=== PATIENT | male | born 1980 | race African-American/Black ===

== ENCOUNTER 2018-12-06 09:27 | Outpatient (CLI) | payer MEDICAID, MEDICARE ==
[2018-12-06 18:00] LABS: BASOPHILS % (AUTO) 0.5 %; EOSINOPHILS # (AUTO) 0.2 10^3/uL (0.0-0.7); EOSINOPHILS % (AUTO) 3.4 %; HGB - HEMOGLOBIN 15.5 g/dL (14.0-18.0); LYMPHOCYTES # (AUTO) 1.7 10^3/uL (1.5-3.5); LYMPHOCYTES % (AUTO) 30.4 %; MEAN CORPUSCULAR HEMOGLOBIN 30.5 pg (27.0-31.0); MEAN CORPUSCULAR HGB CONC 32.4 g/dL (32.0-36.0); MEAN CORPUSCULAR VOLUME 93.9 fL (80.0-94.0); MEAN PLATELET VOLUME 10.8 fL (7.4-11.4); MONOCYTES # (AUTO) 0.6 10^3/uL (0.0-1.0); MONOCYTES % (AUTO) 11.1 %; NEUTROPHILS % (AUTO) 54.2 %; PLT - PLATELET COUNT 189 10^3/uL (130-450); RED BLOOD COUNT 5.09 10^6/uL (4.70-6.10); WHITE BLOOD COUNT 5.6 x10^3/uL (4.8-10.8)
[2018-12-06 18:51] LABS: HB2 TOTAL 15.7 g/dL; HEMOGLOBIN A1C 0.55 g/dL; HEMOGLOBIN A1C % 5.4 % (4.6-6.2)
[2018-12-06 19:02] LABS: ALBUMIN 4.4 g/dL (3.2-5.5); ALBUMIN/GLOBULIN RATIO 1.6 (1.0-2.2); ALKALINE PHOSPHATASE 72 IU/L (42-121); ALT ALANINE AMINOTRANSFERASE 20 IU/L (10-60); AST ASPARTATE AMINOTRANSFERASE 18 IU/L (10-42); BUN - BLOOD UREA NITROGEN 14 mg/dL (6-20); CALCIUM 8.8 mg/dL (8.5-10.3); CARBON DIOXIDE - CO2 31 mmol/L (21-32); CHLORIDE 105 mmol/L (101-111); CHOL/HDL RATIO 2.8 (<5.0); CHOLESTEROL 169 mg/dL; GFR - MDRD 101 (>89); GLUCOSE 81 mg/dL (70-100); HDL CHOLESTEROL 61 mg/dL; LDL CHOLESTEROL,CALCULATED 99 mg/dL; LDL/HDL RATIO 1.6 (<3.6); SODIUM 142 mmol/L (135-145); TOTAL PROTEIN 7.2 g/dL (6.7-8.2); VLDL CHOLESTEROL 9 mg/dL
== END 2018-12-06 09:28 | disposition home or self-care (01) ==
LOC: LAB.S 09:27
PROVIDERS: ATTEND Registered Nurse
DX: F32.9 Major depressive disorder, single episode, unspecified (principal)
CPT/HCPCS: 36415; 80053; 80061; 83036; 83721; 84443; 85025

== ENCOUNTER 2020-07-15 11:25 | Outpatient (CLI) | payer MEDICARE, MEDICAID ==
[2020-07-16 07:49] VITALS: BP 144/89
--- NOTE | 2020-07-16 07:49 | SLEEP CARE CONSULTATION ---
Information from patient questionnaire entered by Marcia Mckeon. I have reviewed and concur with the information entered by Marcia Mckeon. This document represents the service I personally performed and the decisions made by me, Jenna Lantigua MD, [facility]. History of Present Illness Service Date and Time: 07/15/2020 1125 Reason for Visit: New patient Date of Onset: Years Usual bedtime: 11:00 PM Time it takes to fall asleep: 5 min Snores at night: No Observed to quit breathing while asleep: No Number of times waking at night: ? Reasons for waking at night: reports: Bathroom Toss, Turn, or Twitch while sleeping: No Recalls having dreams: Yes Usually gets out of bed at: 10:00 AM Feels refreshed in the morning: Yes Morning headache: Yes (TV) Sleepy or fatigued during the day: Yes Ever fallen asleep while driving: No Takes day naps: Yes Prior sleep studies: No Additional HPI information: I had the pleasure of seeing Mr. Alonso today regarding the possibility of him having a sleep disorder. As you know, he is a 40 year old gentleman who complains of insomnia and excessive daytime sleepiness. The patient himself is not bothered too much but his father reports he staying awake more at night and sleeping more during the day. The patient is blind from . He reports going to bed at 11 pm because thats when his fathers partner turns off the TV. He gets out of bed no later than 9 am. The patient is not bothered by the naps he takes during the day. His daily activity is very limited. He does not leave the house much. His father adds that he would have to go with his son if he leaves the house. He tried melatonin in the past and it worked somewhat. Presently, he only takes Abilify and Wellbutrin. He does not snore much at night. 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 Patient is Single and lives in [place]. Have you smoked in the past 12 months: No Alcohol use: No Family History Family history of sleep disordered breathing: No Allergies and Home Medications Drug allergies reviewed: Yes Home medication list reviewed: Yes (bupropion, Abilify) Review of Systems Cardiovascular: denies: high blood pressure, palpitations, chest pain, irregular heart rate or pulse, leg or foot swelling, have to sleep sitting up, other Respiratory: denies: shortness of breath, wheeze, sputum production, chronic cough, other Gastrointestinal: denies: heartburn, difficulty swallowing, nausea, vomitting, diarrhea, abdominal pain, other Urinary: denies: incontinence, frequency, urgency, impotence, other Neurological: denies: headaches, seizure, head trauma, disorientation, speech dysfunction, gait or balance problems, fainting or unconsciousness, other Psychiatric: reports: anxiety, depression Ear/Nose/Throat: denies: nasal congestion, sinus problems, nose bleeds, dry mouth/throat, hoarseness, injury to nose, tonsillectomy, wisdom teeth removed, other Endocrine: denies: thyroid disease, history of goiter, sluggishness, too hot or cold, excessive thirst, increased appetite, increased urination, unexplained weakness, other Musculoskeletal: denies: joint pain, neck pain, back pain, joint swelling, muscle pain or cramping, mobility problems, other Immunologic: denies: sneezing, rash, itching, allergies to food or environment, other Physical Exam Blood Pressure: 144/89 Heart Rate: 64 O2 Saturation: 98 Height: 5 ft 9 in Weight: 177 lb Body Mass Index: 26.1 BMI Classification: Overweight Neck circumference: 16 Impression and Plan IMPRESSION: 1. 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 It is not clear that his circadian rhythm shifts around from day to day. Naps during the day will be difficult to overcome due to his lack of daytime activity and the fact that they do not bother him. I recommend he create more activities during the day, including going outside. I will have him try tasimelteon (Hetlioz) 20 mg 1 hour before the desired bedtime. The dual- melatonin receptor agonist is the only one approved for the condition. An in- laboratory polysomnography will be ordered to rule out sleep disrupting conditions. Plan: 1. Schedule an in-laboratory polysomnography. 2. Prescription made for tasimelteon 20 mg, #30 with 1 refill. 3. Avoid daytime naps. 4. Return for a follow up after the sleep study. Visit Type: In Office Other Participants: Other (father) Time Spent with Patient (minutes): 15 Provider Statement: I spent 100% of the Face to Face Visit with the patient with greater than 50% spent counseling the patient and coordination of care.
== END 2020-07-15 11:26 | disposition home or self-care (01) ==
LOC: SC 11:25
PROVIDERS: ATTEND Internal Medicine Pulmonary Disease
DX: G47.20 Circadian rhythm sleep disorder, unspecified type (principal); H54.7 Unspecified visual loss
CPT/HCPCS: 99202; G0463; 99212

== ENCOUNTER 2022-10-27 10:55 | Outpatient (CLI) | payer MEDICARE, MEDICAID ==
[2022-10-27 15:17] LABS: BASOPHILS % (AUTO) 0.5 %; EOSINOPHILS # (AUTO) 0.2 10^3/uL (0.0-0.7); EOSINOPHILS % (AUTO) 2.9 %; HCT - HEMATOCRIT 50.3 % (42.0-52.0); HGB - HEMOGLOBIN 16.5 g/dL (14.0-18.0); LYMPHOCYTES # (AUTO) 1.5 10^3/uL (1.5-3.5); LYMPHOCYTES % (AUTO) 26.2 %; MEAN CORPUSCULAR HEMOGLOBIN 30.3 pg (27.0-31.0); MEAN CORPUSCULAR HGB CONC 32.8 g/dL (32.0-36.0); MEAN CORPUSCULAR VOLUME 92.3 fL (80.0-94.0); MEAN PLATELET VOLUME 10.6 fL (7.4-11.4); MONOCYTES # (AUTO) 0.8 10^3/uL (0.0-1.0); MONOCYTES % (AUTO) 13.1 %; NEUTROPHILS # (AUTO) 3.3 10^3/uL (1.5-6.6); NEUTROPHILS % (AUTO) 57.1 %; PLT - PLATELET COUNT 192 10^3/uL (130-450); RED BLOOD COUNT 5.45 10^6/uL (4.70-6.10); RED CELL DISTRIBUTION WIDTH 14.7 % (12.0-15.0); WHITE BLOOD COUNT 5.8 x10^3/uL (4.8-10.8)
[2022-10-27 16:01] LABS: ALBUMIN 4.4 g/dL (3.2-5.5); ALBUMIN/GLOBULIN RATIO 1.4 (1.0-2.2); ALKALINE PHOSPHATASE 81 IU/L (42-121); ALT ALANINE AMINOTRANSFERASE 26 IU/L (10-60); AST ASPARTATE AMINOTRANSFERASE 22 IU/L (10-42); BILIRUBIN,TOTAL 0.7 mg/dL (0.2-1.0); BUN - BLOOD UREA NITROGEN 15 mg/dL (6-20); CALCIUM 9.2 mg/dL (8.5-10.3); CARBON DIOXIDE - CO2 29 mmol/L (21-32); CHLORIDE 106 mmol/L (101-111); CHOL/HDL RATIO 3.2 (<5.0); CHOLESTEROL 151 mg/dL; CREATININE 1.1 mg/dL (0.6-1.3); GFR - MDRD 89 (>89); GLUCOSE 87 mg/dL (74-104); HDL CHOLESTEROL 47 mg/dL; LDL CHOLESTEROL,CALCULATED 86 mg/dL; LDL/HDL RATIO 1.8 (<3.6); POTASSIUM 3.7 mmol/L (3.5-4.5); SODIUM 139 mmol/L (135-145); TOTAL PROTEIN 7.5 g/dL (6.4-8.9); TRIGLYCERIDES 92 mg/dL (48-352); VLDL CHOLESTEROL 18 mg/dL
[2022-10-27 20:47] LABS: ESTIMATED AVERAGE GLUCOSE 117 mg/dL (70-100); HEMOGLOBIN A1c% 5.7 % (4.27-6.07)
== END 2022-10-27 10:56 | disposition home or self-care (01) ==
LOC: LAB.S 10:55
PROVIDERS: ATTEND Registered Nurse
DX: Z13.1 Encounter for screening for diabetes mellitus (principal); Z13.228 Encounter for screening for other metabolic disorders; Z13.220 Encounter for screening for lipoid disorders; Z13.29 Encounter for screening for other suspected endocrine disorder; Z13.0 Encounter for screening for diseases of the blood and blood-forming organs and certain disorders involving the immune mechanism; Z79.899 Other long term (current) drug therapy
CPT/HCPCS: 36415; 80053; 80061; 83036; 83721; 84443; 85025

== ENCOUNTER 2023-04-27 13:08 | Emergency (ER) | payer MEDICAID, MEDICARE ==
--- NOTE | 2023-04-27 13:52 | ED Physician Documentation ---
PD HPI MHE - Stated complaint Stated Complaint: MHE - Chief complaint Chief Complaint: MHE - History obtained from History obtained from: Patient, Family - History of Present Illness Pain level max: 0 Pain level now: 0 Contributing factors: Family (Recently his father's ). No: Substance abuse - ETOH, Substance abuse - drugs Similar symptoms before: Diagnosis (schizophrenia) - Additional information Additional information: 42-year-old male history of schizophrenia and blindness presents to the emergency department with his father. Reportedly the patient has been putting coke hands and doughnuts into the toilet at home. He is not sleeping but does suffer from non 24. No suicidal or homicidal statements. Reportedly the DCR saw the patient at home and sent him here for "medical clearance". There is reportedly a voluntary bed available for the patient. Father states that the patient needs a "comprehensive evaluation" of his medications as they were prescribed many years ago in [place]. He does not currently have a counselor, therapist or psychiatrist. Meds are prescribed by his PCP. Father states that he is unsure if the patient was taking his medications as prescribed or not. Patient states he is taking his medications as prescribed Review of Systems Constitutional: denies: Fever GI: denies: Vomiting Skin: denies: Rash Musculoskeletal: denies: Neck pain, Back pain Neurologic: denies: Headache PD PAST MEDICAL HISTORY - Past Medical History Past Medical History: Yes Respiratory: Other Neuro: None HEENT: Glaucoma Psych: Depression, Anxiety, Schizophrenia Derm: Other - Past Surgical History Past Surgical History: Yes General: Other HEENT: Other - Present Medications Home Medications: Ambulatory Orders Medication Instructions Recorded Confirmed ARIPiprazole [Abilify] 5 mg PO DAILY #30 tablet 01/29/15 04/27/23 buPROPion HCL [Bupropion HCl] 100 mg PO BID #60 tablet 01/29/15 04/27/23 - Allergies Allergies/Adverse Reactions: Allergies Allergy/AdvReac Type Severity Reaction Status Date / Time sertraline HCl * AdvReac Cramps Verified 04/27/23 13:18 [From Zoloft] - Social History Does the pt smoke?: No Smoking Status: Never smoker Does the pt drink ETOH?: No Does the pt have substance abuse?: No - Immunizations Immunizations are current?: No Immunizations: TDAP >10years/unknown - POLST Patient has POLST: No PD ED PE NORMAL - Vitals Vital signs reviewed: Yes - General General: Alert and oriented X 3, No acute distress - HEENT HEENT: Moist mucous membranes - Neck Neck: Supple, no meningeal sign - Cardiac Cardiac: RRR, Strong equal pulses - Respiratory Respiratory: No respiratory distress, Clear bilaterally - Abdomen Abdomen: Soft, Non tender, Non distended - Derm Derm: Warm and dry - Extremities Extremities: No edema - Neuro Neuro: Alert and oriented X 3 - Psych Psych: Normal mood, Normal affect Results - Vitals Vitals: Vital Signs - 24 hr 04/27/23 13:18 Temperature 36.6 C Heart Rate 103 H Respiratory 18 Rate Blood Pressure 145/105 H O2 Saturation 96 Oxygen O2 Source Room air - Labs Labs: Laboratory Tests 04/27/23 04/27/23 04/27/23 13:46 13:46 15:09 WBC 9.1 RBC 5.53 Hgb 16.3 Hct 50.6 MCV 91.5 MCH 29.5 MCHC 32.2 RDW 13.7 Plt Count 194 MPV 10.4 Neut # (Auto) 5.7 Lymph # (Auto) 2.1 [place] # (Auto) 1.1 H Eos # (Auto) 0.2 Baso # (Auto) 0.1 Absolute Nucleated RBC 0.00 Nucleated RBC % 0.0 Sodium 139 Potassium 3.8 Chloride 103 Carbon Dioxide 29 Anion Gap 7.0 BUN 17 Creatinine 1.1 Estimated GFR (MDRD) 89 Glucose 115 H Calcium 8.9 Total Bilirubin 0.7 AST 57 H ALT 61 H Alkaline Phosphatase 81 Total Protein 7.2 Albumin 4.1 Globulin 3.1 Albumin/Globulin Ratio 1.3 Lipase 44 TSH 0.70 Urine Color Urine Clarity Urine pH Ur Specific [place] Urine Protein Urine Glucose (UA) Urine Ketones Urine Occult Blood Urine Nitrite Urine Bilirubin Urine Urobilinogen Ur Leukocyte Esterase Ur Microscopic Review Urine Culture Comments Urine Opiates Screen Ur Buprenorphine Scrn Ur Oxycodone Screen Urine Methadone Screen Ur Barbiturates Screen Ur Tricyclics Screen Ur Phencyclidine Scrn Ur Amphetamine Screen U Methamphetamines Scrn U Benzodiazepines Scrn Urine Cocaine Screen U Cannabinoids Screen Ur Drug Screen Comment Ethyl Alcohol < 10.0 SARS-CoV-2 (PCR) NOT DETECTED 04/27/23 18:01 WBC RBC Hgb Hct MCV MCH MCHC RDW Plt Count MPV Neut # (Auto) Lymph # (Auto) [place] # (Auto) Eos # (Auto) Baso # (Auto) Absolute Nucleated RBC Nucleated RBC % Sodium Potassium Chloride Carbon Dioxide Anion Gap BUN Creatinine Estimated GFR (MDRD) Glucose Calcium Total Bilirubin AST ALT Alkaline Phosphatase Total Protein Albumin Globulin Albumin/Globulin Ratio Lipase TSH Urine Color YELLOW Urine Clarity CLEAR Urine pH 7.0 Ur Specific [place] 1.015 Urine Protein NEGATIVE Urine Glucose (UA) NEGATIVE Urine Ketones 15 H Urine Occult Blood NEGATIVE Urine Nitrite NEGATIVE Urine Bilirubin NEGATIVE Urine Urobilinogen 2 H Ur Leukocyte Esterase NEGATIVE Ur Microscopic Review NOT INDICATED Urine Culture Comments NOT INDICATED Urine Opiates Screen NEGATIVE Ur Buprenorphine Scrn NEGATIVE Ur Oxycodone Screen NEGATIVE Urine Methadone Screen NEGATIVE Ur Barbiturates Screen NEGATIVE Ur Tricyclics Screen NEGATIVE Ur Phencyclidine Scrn NEGATIVE Ur Amphetamine Screen NEGATIVE U Methamphetamines Scrn NEGATIVE U Benzodiazepines Scrn NEGATIVE Urine Cocaine Screen NEGATIVE U Cannabinoids Screen NEGATIVE Ur Drug Screen Comment CUTOFF CONC BELOW: Ethyl Alcohol SARS-CoV-2 (PCR) PD Medical Decision Making - ED course Complexity details: reviewed results, re-evaluated patient, considered differential, d/w patient, d/w family ED course: 42-year-old male, blind from history of schizophrenia. Acting different per father. Social work was consulted, placement is sought. Patient is medically clear for psychiatric care. No beds available tonight, patient will be signed out to the [facility] emergency department physician for care overnight. Patient will likely need to be reevaluated in the morning for potential placement. This document was made in part using voice recognition software. While efforts are made to proofread this document, sound alike and grammatical errors may occur. Departure - Departure Clinical Impression: Schizophrenia Qualifiers: Schizophrenia type: unspecified Qualified Code(s): F20.9 - Schizophrenia, unspecified Condition: Stable Forms: PCP List
[2023-04-27 13:53] LABS: BASOPHILS # (AUTO) 0.1 10^3/uL (0.0-0.1); BASOPHILS % (AUTO) 0.6 %; EOSINOPHILS # (AUTO) 0.2 10^3/uL (0.0-0.7); EOSINOPHILS % (AUTO) 1.8 %; HCT - HEMATOCRIT 50.6 % (42.0-52.0); HGB - HEMOGLOBIN 16.3 g/dL (14.0-18.0); LYMPHOCYTES # (AUTO) 2.1 10^3/uL (1.5-3.5); LYMPHOCYTES % (AUTO) 22.9 %; MEAN CORPUSCULAR HEMOGLOBIN 29.5 pg (27.0-31.0); MEAN CORPUSCULAR HGB CONC 32.2 g/dL (32.0-36.0); MEAN CORPUSCULAR VOLUME 91.5 fL (80.0-94.0); MEAN PLATELET VOLUME 10.4 fL (7.4-11.4); MONOCYTES # (AUTO) 1.1 10^3/uL (0.0-1.0); MONOCYTES % (AUTO) 11.9 %; NEUTROPHILS # (AUTO) 5.7 10^3/uL (1.5-6.6); NEUTROPHILS % (AUTO) 62.5 %; PLT - PLATELET COUNT 194 10^3/uL (130-450); RED BLOOD COUNT 5.53 10^6/uL (4.70-6.10); RED CELL DISTRIBUTION WIDTH 13.7 % (12.0-15.0); WHITE BLOOD COUNT 9.1 x10^3/uL (4.8-10.8)
[2023-04-27 14:26] LABS: ALBUMIN 4.1 g/dL (3.2-5.5); ALBUMIN/GLOBULIN RATIO 1.3 (1.0-2.2); ALKALINE PHOSPHATASE 81 IU/L (42-121); ALT ALANINE AMINOTRANSFERASE 61 IU/L (10-60); AST ASPARTATE AMINOTRANSFERASE 57 IU/L (10-42); BILIRUBIN,TOTAL 0.7 mg/dL (0.2-1.0); BUN - BLOOD UREA NITROGEN 17 mg/dL (6-20); CALCIUM 8.9 mg/dL (8.5-10.3); CARBON DIOXIDE - CO2 29 mmol/L (21-32); CHLORIDE 103 mmol/L (101-111); CREATININE 1.1 mg/dL (0.6-1.3); ETOH - ETHANOL < 10.0 mg/dL; GFR - MDRD 89 (>89); GLUCOSE 115 mg/dL (74-104); LIPASE 44 U/L (11-82); POTASSIUM 3.8 mmol/L (3.5-4.5); SODIUM 139 mmol/L (135-145); TOTAL PROTEIN 7.2 g/dL (6.4-8.9)
[2023-04-27 18:08] LABS: BILIRUBIN,URINE NEGATIVE (NEGATIVE); GLUCOSE, URINE (UA) NEGATIVE (NEGATIVE); KETONES,URINE (UA) 15 mg/dL (NEGATIVE); LEUKOCYTE ESTERASE, URINE NEGATIVE (NEGATIVE); NITRITE,URINE NEGATIVE (NEGATIVE); OCCULT BLOOD,URINE NEGATIVE (NEGATIVE); PROTEIN,URINE NEGATIVE (NEGATIVE); UROBILINOGEN,URINE 2 E.U./dL (NORMAL)
[2023-04-27 18:10] LABS: CLARITY,URINE CLEAR (CLEAR)
[2023-04-27 18:24] LABS: AMPHETAMINE SCREEN,URINE NEGATIVE (NEGATIVE); BARBITURATE SCREEN,UR NEGATIVE (NEGATIVE); BENZODIAZEPINES SCREEN, URINE NEGATIVE (NEGATIVE); BUPRENORPHINE SCREEN, URINE NEGATIVE (NEGATIVE); COCAINE SCREEN URINE NEGATIVE (NEGATIVE); METHADONE SCREEN, URINE NEGATIVE (NEGATIVE); METHAMPHETAMINES SCREEN, URINE NEGATIVE (NEGATIVE); OPIATE SCREEN, URINE NEGATIVE (NEGATIVE); OXYCODONE SCREEN, URINE NEGATIVE (NEGATIVE); THC CANNABINOID SCREEN, URINE NEGATIVE (NEGATIVE); TRICYCLIC ANTIDEPRESSANT,URINE NEGATIVE (NEGATIVE)
[2023-04-27] MEDS: buPROPion SR 100 MG TABLET PO SCH (22:13)
--- NOTE | 2023-04-28 01:45 | ED Physician Documentation ---
ED Addendum - Addendum Addendum: 04/28/23 01:44 - [facility] has spoken to the patient and called us back stating that they will not take this patient unless he is DCR did as they do not feel that he is able to consent for treatment.The RN did reach back out to [facility] to make sure that they saw that the patient was seen by the DCR earlier today but as he was voluntary they did not feel that they needed to be involved. They are aware of this but again feel that he needs to be DCR'd for treatment. 04/28/23 02:29 D/W DCR Esper[place] - She will speak to [facility]. 04/28/23 03:22 Per DCR Esperanza, pt is not detainable at this time. She was not able to get through to [facility]. Recommends waiting to hear from [facility], [facility], and also see if [facility] will reconsider during AM and redo their intake. Patient signed out to oncoming provider at shift change.
[2023-04-28 06:33] VITALS: O2SAT 98
[2023-04-28] MEDS ORDERED: ARIPiprazole 5 MG TABLET PO SCH (09:00)
[2023-04-28] MEDS: buPROPion SR 100 MG TABLET PO SCH (09:32)
[2023-04-28 10:14] VITALS: BP 157/87
== END 2023-04-28 11:03 | disposition home or self-care (01) ==
LOC: ED 13:08
DX: F20.9 Schizophrenia, unspecified (principal); Z79.899 Other long term (current) drug therapy
CPT/HCPCS: 36415; 80053; 80306; 81003; 83690; 84443; 85025; 87635; 99283; A9270; G0480; 80320; 81001; 87086

== ENCOUNTER 2023-05-06 15:57 | Emergency (ER) | payer MEDICARE ==
[2023-05-06 16:15] LABS: BASOPHILS % (AUTO) 0.4 %; EOSINOPHILS # (AUTO) 0.1 10^3/uL (0.0-0.7); EOSINOPHILS % (AUTO) 0.6 %; HCT - HEMATOCRIT 50.1 % (42.0-52.0); HGB - HEMOGLOBIN 16.5 g/dL (14.0-18.0); LYMPHOCYTES # (AUTO) 1.8 10^3/uL (1.5-3.5); MEAN CORPUSCULAR HEMOGLOBIN 30.1 pg (27.0-31.0); MEAN CORPUSCULAR HGB CONC 32.9 g/dL (32.0-36.0); MEAN CORPUSCULAR VOLUME 91.3 fL (80.0-94.0); MEAN PLATELET VOLUME 9.9 fL (7.4-11.4); MONOCYTES # (AUTO) 0.9 10^3/uL (0.0-1.0); MONOCYTES % (AUTO) 11.2 %; NEUTROPHILS # (AUTO) 5.4 10^3/uL (1.5-6.6); NEUTROPHILS % (AUTO) 65.3 %; PLT - PLATELET COUNT 263 10^3/uL (130-450); RED BLOOD COUNT 5.49 10^6/uL (4.70-6.10); RED CELL DISTRIBUTION WIDTH 13.9 % (12.0-15.0); WHITE BLOOD COUNT 8.3 x10^3/uL (4.8-10.8)
--- NOTE | 2023-05-06 16:29 | ED Physician Documentation ---
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 He was here about a week ago and psychiatric hospitalization was recommended, but he was not detainable. He was in [place] 2 days ago and they wanted to hospitalize him but it sounds like there was no bed. Social work let me know before the patient's arrival that there was a bed for him at [facility] and was going to present to the emergency department for medical clearance. Patient here with father. Father states that he threw out all of his meds 2 nights ago. States that he has been belligerent at home and pushing his father. PD PAST MEDICAL HISTORY - Past Medical History Respiratory: Other Neuro: None HEENT: Glaucoma Psych: Depression, Anxiety, Schizophrenia Derm: Other - Past Surgical History Past Surgical History: Yes General: Other HEENT: Other - Present Medications Home Medications: Ambulatory Orders Medication Instructions Recorded Confirmed ARIPiprazole [Abilify] 5 mg PO DAILY #30 tablet 01/29/15 05/06/23 buPROPion HCL [Bupropion HCl Sr] 100 mg PO BID 04/28/23 05/06/23 - Allergies Allergies/Adverse Reactions: Allergies Allergy/AdvReac Type Severity Reaction Status Date / Time sertraline HCl * AdvReac Cramps Verified 05/06/23 16:17 [From Zoloft] - Social History Does the pt smoke?: No Smoking Status: Never smoker Does the pt drink ETOH?: No Does the pt have substance abuse?: No - Immunizations Immunizations are current?: No Immunizations: TDAP >10years/unknown - POLST Patient has POLST: No PD ED PE NORMAL - Vitals Vital signs reviewed: Yes - General General: No acute distress, Other (Calm and cooperative initially here. Somewhat flattened affect. Opacified corneas and blind.) - Cardiac Cardiac: RRR, No murmur - Respiratory Respiratory: No respiratory distress, Clear bilaterally - Abdomen Abdomen: Non tender - Neuro Eye Opening: Spontaneous Motor: Obeys Commands Verbal: Oriented GCS Score: 15 Results - Vitals Vitals: Vital Signs - 24 hr 05/06/23 16:07 Temperature 36.1 C L Heart Rate 82 Respiratory 18 Rate Blood Pressure 139/72 H O2 Saturation 99 Oxygen O2 Source Room air - EKG (time done) 1631 EKG releavant findings:: EKG personally interpreted by author of this note. Relevant findings are: Rate: Rate (enter#) (81) Rhythm: NSR Ora: Normal Intervals: Normal [place] QRS: Normal Ischemia: Normal ST segments - Labs Labs: Laboratory Tests 05/06/23 05/06/23 05/06/23 16:09 16:09 16:10 WBC 8.3 RBC 5.49 Hgb 16.5 Hct 50.1 MCV 91.3 MCH 30.1 MCHC 32.9 RDW 13.9 Plt Count 263 MPV 9.9 Neut # (Auto) 5.4 Lymph # (Auto) 1.8 Saline # (Auto) 0.9 Eos # (Auto) 0.1 Baso # (Auto) 0.0 Absolute Nucleated RBC 0.00 Nucleated RBC % 0.0 Sodium 138 Potassium 3.5 Chloride 102 Carbon Dioxide 29 Anion Gap 7.0 BUN 15 Creatinine 1.2 Estimated GFR (MDRD) 80 L Glucose 92 Calcium 9.3 Magnesium 1.8 Total Bilirubin 0.6 AST 26 ALT 41 Alkaline Phosphatase 79 Total Creatine Kinase 532 H Total Protein 7.3 Albumin 4.3 Globulin 3.0 Albumin/Globulin Ratio 1.4 Lipase 33 Vitamin B12 275 Folate 15.3 TSH 0.22 L Urine Color YELLOW Urine Clarity CLEAR Urine pH 6.0 Ur Specific [place] 1.025 Urine Protein NEGATIVE Urine Glucose (UA) NEGATIVE Urine Ketones 40 H Urine Occult Blood NEGATIVE Urine Nitrite NEGATIVE Urine Bilirubin NEGATIVE Urine Urobilinogen 1 (NORMAL) Ur Leukocyte Esterase NEGATIVE Ur Microscopic Review NOT INDICATED Urine Culture Comments NOT INDICATED Salicylates < 1.5 Urine Opiates Screen NEGATIVE Ur Buprenorphine Scrn NEGATIVE Ur Oxycodone Screen NEGATIVE Urine Methadone Screen NEGATIVE Acetaminophen 0.1 Ur Barbiturates Screen NEGATIVE Ur Tricyclics Screen NEGATIVE Ur Phencyclidine Scrn NEGATIVE Ur Amphetamine Screen NEGATIVE U Methamphetamines Scrn NEGATIVE U Benzodiazepines Scrn NEGATIVE Urine Cocaine Screen NEGATIVE U Cannabinoids Screen NEGATIVE Ur Drug Screen Comment CUTOFF CONC BELOW: Ethyl Alcohol < 10.0 SARS-CoV-2 (PCR) 05/06/23 16:42 WBC RBC Hgb Hct MCV MCH MCHC RDW Plt Count MPV Neut # (Auto) Lymph # (Auto) Saline # (Auto) Eos # (Auto) Baso # (Auto) Absolute Nucleated RBC Nucleated RBC % Sodium Potassium Chloride Carbon Dioxide Anion Gap BUN Creatinine Estimated GFR (MDRD) Glucose Calcium Magnesium Total Bilirubin AST ALT Alkaline Phosphatase Total Creatine Kinase Total Protein Albumin Globulin Albumin/Globulin Ratio Lipase Vitamin B12 Folate TSH Urine Color Urine Clarity Urine pH Ur Specific [place] Urine Protein Urine Glucose (UA) Urine Ketones Urine Occult Blood Urine Nitrite Urine Bilirubin Urine Urobilinogen Ur Leukocyte Esterase Ur Microscopic Review Urine Culture Comments Salicylates Urine Opiates Screen Ur Buprenorphine Scrn Ur Oxycodone Screen Urine Methadone Screen Acetaminophen Ur Barbiturates Screen Ur Tricyclics Screen Ur Phencyclidine Scrn Ur Amphetamine Screen U Methamphetamines Scrn U Benzodiazepines Scrn Urine Cocaine Screen U Cannabinoids Screen Ur Drug Screen Comment Ethyl Alcohol SARS-CoV-2 (PCR) NOT DETECTED PD Medical Decision Making - ED course ED course: 42-year-old gentleman with decompensated schizophrenia presents with his father looking for inpatient admission. Telepsychiatric consultation does recommend inpatient admission and they are looking for psychiatric placement. Care to overnight physician at shift change pending hopeful expedient placement. Departure - Departure Clinical Impression: Schizophrenia Qualifiers: Schizophrenia type: unspecified Qualified Code(s): F20.9 - Schizophrenia, unspecified Condition: Stable Forms: PCP List
[2023-05-06 16:45] LABS: THYROID STIMULATING HORMONE 0.22 uIU/mL (0.34-5.60)
[2023-05-06 16:46] LABS: ACETAMINOPHEN 0.1 ug/mL; ALBUMIN 4.3 g/dL (3.2-5.5); ALBUMIN/GLOBULIN RATIO 1.4 (1.0-2.2); ALKALINE PHOSPHATASE 79 IU/L (42-121); ALT ALANINE AMINOTRANSFERASE 41 IU/L (10-60); AST ASPARTATE AMINOTRANSFERASE 26 IU/L (10-42); BILIRUBIN,TOTAL 0.6 mg/dL (0.2-1.0); BUN - BLOOD UREA NITROGEN 15 mg/dL (6-20); CALCIUM 9.3 mg/dL (8.5-10.3); CARBON DIOXIDE - CO2 29 mmol/L (21-32); CHLORIDE 102 mmol/L (101-111); CK- CREATINE KINASE 532 IU/L (30-223); CREATININE 1.2 mg/dL (0.6-1.3); ETOH - ETHANOL < 10.0 mg/dL; GFR - MDRD 80 (>89); GLUCOSE 92 mg/dL (74-104); LIPASE 33 U/L (11-82); MAGNESIUM 1.8 mg/dL (1.7-2.3); POTASSIUM 3.5 mmol/L (3.5-4.5); SODIUM 138 mmol/L (135-145); TOTAL PROTEIN 7.3 g/dL (6.4-8.9)
[2023-05-06 16:55] LABS: SALICYLATE < 1.5 mg/dL
--- NOTE | 2023-05-06 17:29 | TELEPSYCH PHYS NOTE ---
[facility] Telepsych Consult Consult Date: 05/06/23 Name of Referring Provider:: ED provider Reason for Consult: decompensation of schizophrenia; aggressive behaviors - Suicide Risk Sreening (ASQ Tool) In the past few weeks, have you wished you were ?: No In the past few weeks, have you felt that you or your family would be better off if you were ?: No In the past week, have you been having thoughts about killing yourself?: No Have you ever tried to kill yourself?: No - Assessment Language: Telugu Software Trainer Required: No Cultural, Anabaptism or Spiritual Preferences: none reported Notes: Father primary historian Chief Complaint: "well my dad thought that I was malfunctioning - I was talking to my mother" History of Present Illness: 42 yo male presenting to ED accompanied by father for psychiatric evaluation and hospitalization secondary to decompensation of schizophrenia and aggressive behaviors. Patient was noted to have been extremely premature. Experiences congenital blindness. Hx of schizophrenia. Was evaluated last week with the recommendation of psychiatric hospitalization per report. Patient refused and apparently there was not sufficient evidence to warrant a committal. Has been seen last night in another facility and discharged as well. Patient is an unreliable historian however father indicates that the patient has discarded his medications. Father reports that 3 weeks ago he lost his . Notes that patient and his did spend a lot of time together although he did not describe them as being extremely close. He began noticing decompensation at that time. Has been destructive to property. Flooded toilet numerous times; father believes that patient may have been discarding medication there. Has refused to comply with rules of the home in terms of housekeeping which is not baseline. Father reports that the patient has been engaging in behaviors that appear nonsensical. Notes that the patient believes that his father and the medications are trying to kill him. Patient did become both verbally and physically aggressive with his 77 yo father this AM. Father does not feel that he can safely provide care for his son and is requesting IP hospitalization. In light of sx presentation, IP hospitalization for safety and stabilization is warranted. Suicide Ideation - Homicide Ideation - Self Harm: Denies suicidal ideation. Denies homicidal ideation Psychiatric History - Treatment History: Patient has a reported hx of schizophrenia. Denies hx of suicide attempts. Appears to have a remote hx of psychiatric hospitalizations. Has been refusing medications. Community Resources Accessed: mental health Family Psych History/ History of suicide: unable to assess Nutritional Status: No nutritional concerns - Medication & Allergies Home Medications: Ambulatory Orders Medication Instructions Recorded Confirmed ARIPiprazole [Abilify] 5 mg PO DAILY #30 tablet 01/29/15 05/06/23 buPROPion HCL [Bupropion HCl Sr] 100 mg PO BID 04/28/23 05/06/23 Allergies/Adverse Reactions: Allergies Allergy/AdvReac Type Severity Reaction Status Date / Time sertraline HCl * AdvReac Cramps Verified 05/06/23 16:17 [From Zoloft] - Drug & Alcohol History Does patient have Drug/ETOH history or addictive behavior?: No - Trauma Does the patient have a history of trauma, abuse, neglect or explotation?: No - Personal Information Does the patient have a history or present tendencies for violence?: Present History or present tendencies for violence (Notes): verbally and physically aggressive with his 77 yo father this AM Services History: NA Does patient have any Legal Charges or Investigations?: No Environment & Living Situation - Social, Peer-Group (Note): At home Environment & Living Situation - Social, Peer-Group (Notes): with 77 yo father Marital Status - Family Circumstances: single Stressors - Financial Concerns: patient reports that he has been talking with his mother Education: unknown Occupation: disabled Collateral - Interdisciplinary Input: collateral information from father - Medical History Psychiatric: reports: Depression, Anxiety, Schizophrenia Neurological: reports: None Eyes, Ears, Nose, Throat: reports: Glaucoma Respiratory: reports: Other Skin: reports: Other - Surgical History General: reports: Other HEENT: reports: Other Childhood History: appears that mother was the primary caregiver for years until she from [place] - appears to have been within the past 5 yrs - Mental Status Exam Appearance and Attire: Appears stated age. Dressed in hospital scrubs. Attitude and Behavior: Calm. Cooperative. Speech: Mumbled. Affect and Mood: Mood is euthymic. Affect reactive. Association and Thought Process: Thoughts are circumstantial. Associations loose. Thought Content: Denies SI, HI Perception: Endorses auditory hallucinations of his mother. Father notes that the patient is experiencing paranoid and persecutory delusions that his father and the medication are trying to kill him. Sensorium, memory and orientation: Alert Intellectual - Cognitive functioning: estimates to have poor health literacy Insight and Judgement: Insight is limited. Judgment is impaired Emotional and Behavioral Functioning: impaired per father's report Ability to Self-Care: Able to complete ADLs - Personal Goals Short-term Goals: unable to assess Long-term Goals: unable to assess - Risk/Protective Factors Risk Factors: Trigger events leading to humiliation, shame and/or despair, Inadequate social supports, Social Isolation Protective Factors / Internal: Identifies reasons for living Protective Factors / External: Supportive social network of family or friends - Plan Impression/Risk Assessment: 42 yo male presenting with decompensation of schizophrenia. Patient is experiencing paranoid and persecutory thoughts that his father is trying to kill him and that his medication will kill him. Has been noncompliant with medications. Not functioning at baseline per father. Became verbally and physically aggressive with his father today. Father does not feel that he can safely manage in the outpatient setting. In light of sx presentation based on collateral information, IP hospitalization for safety and stabilization is warranted. Treatment - Therapy Recommendations: supportive Pharmacological Recommendations: Would recommend Zyprexa 10 mg po q 6hrs PRN agitation. - Problem List (1) Schizophrenia Qualifiers: Schizophrenia type: unspecified Qualified Code(s): F20.9 - Schizophrenia, unspecified - Time Spent & Provider Location Telepsych consultation conducted via videoconferencing: Yes List names and roles of persons who participated in consult: Jacy Houston TANIA-; patient; patient's father with permission of the patient Telepsych Provider Location: remote Time Spent (Minutes): 45
[2023-05-06 18:19] LABS: BILIRUBIN,URINE NEGATIVE (NEGATIVE); GLUCOSE, URINE (UA) NEGATIVE (NEGATIVE); KETONES,URINE (UA) 40 mg/dL (NEGATIVE); LEUKOCYTE ESTERASE, URINE NEGATIVE (NEGATIVE); NITRITE,URINE NEGATIVE (NEGATIVE); OCCULT BLOOD,URINE NEGATIVE (NEGATIVE); PROTEIN,URINE NEGATIVE (NEGATIVE); UROBILINOGEN,URINE 1 (NORMAL) E.U./dL (NORMAL)
[2023-05-06 18:21] LABS: CLARITY,URINE CLEAR (CLEAR)
[2023-05-06 18:30] LABS: AMPHETAMINE SCREEN,URINE NEGATIVE (NEGATIVE); BARBITURATE SCREEN,UR NEGATIVE (NEGATIVE); BENZODIAZEPINES SCREEN, URINE NEGATIVE (NEGATIVE); BUPRENORPHINE SCREEN, URINE NEGATIVE (NEGATIVE); COCAINE SCREEN URINE NEGATIVE (NEGATIVE); METHADONE SCREEN, URINE NEGATIVE (NEGATIVE); METHAMPHETAMINES SCREEN, URINE NEGATIVE (NEGATIVE); OPIATE SCREEN, URINE NEGATIVE (NEGATIVE); OXYCODONE SCREEN, URINE NEGATIVE (NEGATIVE); THC CANNABINOID SCREEN, URINE NEGATIVE (NEGATIVE); TRICYCLIC ANTIDEPRESSANT,URINE NEGATIVE (NEGATIVE)
[2023-05-06] MEDS ORDERED: ACETAMINOPHEN 500 MG TABLET PO PRN (21:45)
[2023-05-06] MEDS: buPROPion SR 100 MG TABLET PO SCH (22:12)
--- NOTE | 2023-05-07 03:22 | ED Physician Documentation ---
ED Addendum - Addendum Addendum: 05/07/23 03:20 Patient endorsed to me by Dr. Darling awaiting IPP placement. I noted re commendation by telepsych to provide fluids to patient in light of mildly elevated CK. He is tolerating PO fluids without difficulty. Encouraging patient to drink. Also with mildly low TSH. full thyroid panel has been ordered. Plan to endorse to incoming daytime ED MD at 7am shift change pending placement.
[2023-05-07] MEDS: ARIPiprazole 5 MG TABLET PO SCH (08:20)
--- NOTE | 2023-05-07 08:26 | ED Physician Documentation ---
ED Addendum - Addendum Addendum: 05/07/23 07:25 Patient received in signout at shift change. Awaiting placement. Sleeping this morning. 05/07/23 08:37 Patient awake, father was with him overnight. Patient states he was able to get some sleep but still had some trouble as his father was snoring. He did have breakfast. Patient is still voluntary wanting inpatient psychiatric treatment. Father shows me some pictures of toilets at home with various objects thrown into them that patient is placed there.Patient is otherwise calm and cooperative. 05/07/23 18:00 No accepting facility yet. Pt remains calm and cooperative. Pt signed out at shift change. Remains boarding in the ED.
--- NOTE | 2023-05-08 10:57 | ED Physician Documentation ---
ED Addendum - Addendum Addendum: 05/08/23 10:55 Patient remains boarding in the emergency department awaiting psychiatric placement. There have been no excepting facilities and that the barrier appears to be that the patient is legally blind. While in the emergency department yesterday and throughout my shift thus far this morning he has not exhibited any aggressive or acutely psychotic behaviors. He has been calm and cooperative. He has been taking his Abilify and Wellbutrin. I think at this time it would be appropriate to reconsult with telepsychiatry to discuss whether he needs an antipsychotic for his underlying schizophrenia and the behaviors he was exhibiting at home. We then could consider initiating the medication here and stabilizing him from a psychiatric standpoint which from my perspective he does appear to be stable currently. At that time perhaps we could consider placing him into an adult family home which is what the father is desiring. 05/08/23 13:20 Patient has been reevaluated by telepsychiatry. At this time patient no longer requires inpatient psychiatric hospitalization. They are recommending to continue his current medication. Social work will then work on placing him in to an adult family home. Social work has talked with father. He is comfortable in taking the patient home. He is still considering adult family home for the patient. Requesting refills of his Abilify and Wellbutrin which I have prescribed. Departure - Departure Disposition: 01 Home, Self Care Clinical Impression: Schizophrenia Qualifiers: Schizophrenia type: unspecified Qualified Code(s): F20.9 - Schizophrenia, unspecified Condition: Stable Instructions: ED Schizophrenia General Prescriptions: ARIPiprazole [Abilify] 5 mg PO DAILY #30 tablet buPROPion [Wellbutrin Sr] 100 mg PO BID 30 Days #60 tablet Comments: David Has been doing well here on Abilify and Wellbutrin. He has not needed any rescue medications to help with any behaviors. He has been seen by her telepsychiatrist again today and they do not feel he needs to be admitted to an inpatient unit any longer. I have sent [facility]ilify [facility] in [place]. Please follow-up with his primary care provider as well as any resources given to you by our manager social responsibility. Please make sure he is taking his medications. Return to the emergency department with any new or worsening symptoms. Forms: PCP List Discharge Date/Time: 05/08/23 16:22
[2023-05-08 13:48] VITALS: BP 143/73; O2SAT 96
== END 2023-05-08 16:22 | disposition home or self-care (01) ==
LOC: ED 15:57
DX: F20.9 Schizophrenia, unspecified (principal); H54.8 Legal blindness, as defined in USA
CPT/HCPCS: 36415; 80053; 80306; 80307; 81003; 82550; 82607; 82746; 83690; 83735; 84436; 84439; 84443; 84480; 84481; 85025; 87635; 93005; 99283; 99284; A9270; G0425; G0480; Q3014; 80143; 80179; 81001; 81599; 82077; 87086